=== PATIENT | male | born 1965 | race Caucasian/White ===

== ENCOUNTER 2021-02-05 17:21 | Outpatient (REF) | payer OTHER, SELFPAY ==
[2021-02-08 07:15] LABS: COVID-19 RT-PCR UVMMC Result Negative (Negative)
== END 2021-02-05 17:22 | disposition home or self-care (01) ==
LOC: NCHCN 17:21
PROVIDERS: PCP Internal Medicine; Visit Provider Internal Medicine
DX: Z20.822 Contact with and (suspected) exposure to COVID-19 (principal)
CPT/HCPCS: U0003

== ENCOUNTER 2021-05-29 11:30 | Outpatient (REF) | payer OTHER, SELFPAY ==
[2021-05-29 14:39] LABS: Calculated LDL 122 mg/dL (<100); Cholesterol 207 mg/dL (<200); HDL Cholesterol 69 mg/dL (40-60); Triglyceride 81 mg/dL (<150)
== END 2021-05-29 11:31 | disposition home or self-care (01) ==
LOC: NCHCN 11:30
PROVIDERS: PCP Internal Medicine; Visit Provider Family Medicine
DX: Z00.00 Encounter for general adult medical examination without abnormal findings (principal); Z13.220 Encounter for screening for lipoid disorders
CPT/HCPCS: 80061

== ENCOUNTER 2021-07-30 03:24 | Emergency (ER) | payer OTHER, SELFPAY ==
--- NOTE | 2021-07-30 03:26 | ED.GENADUL_ITS ---
Discharge Plan Disposition Patient Disposition: HOME Condition: Good Discharge Details Clinical Impression: Injury of knee, right Primary Care Provider: Austin Shrestha ED Provider: Andrés Cantrell Home Meds and New Rx's Prescriptions: No Action No Known Home Meds RF: 0 Discharge Instructions Instructions: Swollen Knee Joint (ED) Additional Instructions: At this time there is no evidence of fracture on your x-ray however as we discussed together I suspect that you have injured the menisci/cartilage and potentially strained the tendons. Please ice your knee, keep it wrapped with an Steve wrap, and take Tylenol Motrin as needed for pain. Please follow-up closely with the family support specialist Dr. Mills. If you notice any worsening of your symptoms, or any new symptoms such as vomiting, diarrhea, fever, chills, shortness of breath, chest pain, numbness, weakness, or fainting , please return immediately to the emergency department for reevaluation. Please follow up with your primary care provider as soon as possible for reassessment and reevaluation. As always, it was a pleasure participating in your medical care today. Referrals: Eren Mills MD [ [facility] STAFF PHYSICIAN] - Medical Decision Making This is a pleasant 56-year-old male with no significant past medical history who presents today for evaluation of right knee pain. Patient has noted that for the last few weeks he has had worsening achiness in his right knee. Pain has been worse with movement, bending, and walking. He has also noticed that over the last week he has not been able to bend or kneel down as he used to. He otherwise denies any trauma. This evening at about 9 PM the patient was walking down his stairs when he felt a pop and had significant pain in his right knee. Since then he has noted swelling, and has been unable to move it without any significant pain. He did take ibuprofen twice this evening but this did not help his pain. He does have crutches. He denies any previous surgeries or injuries to the knee. He does have an appointment with Dr. Mills in a bit greater than 1 month from now. No other complaints at this time. No other modifying factors. Physical exam demonstrates mild swelling around the knee, however there is actually no tenderness on palpation of the patella, tibial plateau, or fibular head. The patient does have pain with varus stressing primarily when the knee is bent to 90 degrees. The pain is located on the lateral aspect of the knee. Alexsander's test is notably positive and tender. Suspect combination of meniscal injury and potentially lateral collateral injury however I feel the latter being less likely. The patient does have an appointment scheduled with Dr. Mills for his ongoing right knee pain, however this is over a month away. We will get an x-ray to rule out acute process treat with NSAIDs and ice, monitor closely and reassess. Additionally the patient has no tenderness in the calf or thigh, neurovascular exam proximally and distally is normal. No clinical evidence of compartment syndrome, neurovascular compromise, or arterial injury. 4:46 AM X-ray results negative for any evidence of acute fracture. Will discharge patient with recommendation for NSAIDs, rest, ice, elevation and Steve wrap. Will copy the note to Dr. Mills. Recommend close follow-up with PCP and Dr. Mills for further evaluation on outpatient basis. Suspect meniscal injury, as well as mild ligamentous damage. Knee is not unstable on exam. No indication for knee brace at this time. Recommend nonweightbearing until reassessment by PCP/Ortho or until pain improves. I have extensively reviewed the treatment plan and discharge instructions with the patient and their family. I have addressed all patient concerns at this time. The patient and family was made aware of what symptoms to monitor for that would warrant a return to the emergency department. Discussed the plan with the patient and family, they demonstrate verbal understanding and agreement with our assessment and plan at this time. The documentation in this chart was dictated using [employer] dictation software. Please excuse any dictation errors. FINDINGS: Bones/joints: Pre patellar and infrapatellar soft tissue swelling. Small joint effusion. No evidence of acute fracture. Mild osteoarthritis. Soft tissues: See Bones/joints finding. IMPRESSION: Soft tissue swelling and small joint effusion Thank you for allowing us to participate in the care of your patient. Dictated and Authenticated by: Vibha Murillo MD 07/30/2021 4:40 AM Eastern Time ([place] & [place]) HPI General Date/Time Provider Initiated Documentation: 07/30/21 03:25 . HPI Narrative: This is a pleasant 56-year-old male with no significant past medical history who presents today for evaluation of right knee pain. Patient has noted that for the last few weeks he has had worsening achiness in his right knee. Pain has been worse with movement, bending, and walking. He has also noticed that over the last week he has not been able to bend or kneel down as he used to. He otherwise denies any trauma. This evening at about 9 PM the patient was walking down his stairs when he felt a pop and had significant pain in his right knee. Since then he has noted swelling, and has been unable to move it without any significant pain. He did take ibuprofen twice this evening but this did not help his pain. He does have crutches. He denies any previous surgeries or injuries to the knee. He does have an appointment with Dr. Mills in a bit greater than 1 month from now. No other complaints at this time. No other modifying factors. Related Data Home Medications Medication Instructions Recorded Confirmed Unknown [No Known Home Meds] 04/11/18 07/30/21 Allergies Allergy/AdvReac Type Severity Reaction Status Date / Time No Known Allergies Allergy Unverified 07/30/21 03:32 Review of Systems All systems reviewed & are unremarkable except as noted in HPI and below [facility] Surgical History Excision, Lesion (09/02/17) skin of temporal area, right shoulder and right flank - all returned as seborrheic keratosis. Social History Smoking/Tobacco Use Status: Never Smoking risk assessment performed?: Yes Alcohol Intake: current Alcohol Intake frequency: a few times a week Alcohol type: beer Drug use: Never Substance use type: does not use Do you feel safe at home: Yes Do you feel safe in your relationship?: Yes Exam Narrative Exam Narrative: 1.Const: Well-nourished, Well-developed, appearing stated age 2.Eyes: PERRL, no conjunctival injection, and symmetrical lids. 3.ENT: Atraumatic external nose and ears. Moist MM. Neck: Symmetric, trachea midline, No thyromegaly. 4.CVS: +S1/S2, No murmurs or gallops. Peripheral pulses 2+ and equal in all extremities. Brisk capillary refill in all extremities. 5.RESP: Unlabored respiratory effort. Clear to auscultation bilaterally. No wheezes rales or rhonchi 6.GI: Soft, Nontender/Nondistended, No hepatosplenomegaly. No guarding or rebound. 7.MSK: Right knee: The knee is stable to varus, valgus, and anterior drawer stress, however there is a slight increase in pain as well as minimal laxity on varus stressing, and this is most pronounced when the knee is bent at 90 degrees and the least pronounced when the knee is straight. No deformity, however there is mild swelling throughout. No redness or atypical warmth to suggest infection.Alexsander test is notably positive for pain. Patient is able to walk with a mild to moderate limp secondary to pain. No ttp to the patella, tibial plateau, or fibular head. 8.Skin: Warm, Dry. No rashes or lesions. 9.Neuro: [place] operator II-XII grossly intact. Sensation grossly intact, no focal neurologic deficits. 10.Psych: (AAO) x3. Appropriate mood and affect
[2021-07-30 03:28] VITALS: BP 114/65; PULSE 77; RESP 16; TEMP 37.1; O2SAT 97
--- NOTE | 2021-07-30 03:30 | DI.RAD_ITS ---
Exam(s) XR KNEE RT 3V AP,LAT,MAGALI EXAM: XR KNEE RT 3V AP,LAT,MAGALI CLINICAL HISTORY: pop in right knee3, swelling ,r/o fx. TECHNIQUE: 2D digital imaging was performed of the right knee. Three views obtained. AP, lateral an d AP tunnel views were obtained. COMPARISON: No previous for comparison. FINDINGS: BONES: No acute fracture is present. No bony destructive lesion is seen. JOINTS: The knee is normally aligned. No joint effusion is seen. SOFT TISSUE: Mild prepatellar soft tissue swelling. IMPRESSION: No acute fracture or dislocation. DATA REPOSITORY: RADIATION DOSE DELIVERED:
[2021-07-30] MEDS: Acetaminophen 500 MG TAB 1000 MG PO (03:48)
--- NOTE | 2021-07-30 04:41 | DI.VRAD_ITS ---
PROCEDURE INFORMATION: Exam: XR Right Knee Exam date and time: 07/30/2021 3:39 AM Age: 56 years old Clinical indication: Other: Pop in right knee3, swelling , R/O FX TECHNIQUE: Imaging protocol: XR Right knee. Views: 3 views. COMPARISON: No relevant prior studies available. FINDINGS: Bones/joints: Pre patellar and infrapatellar soft tissue swelling. Small joint effusion. No evidence of acute fracture. Mild osteoarthritis. Soft tissues: See Bones/joints finding. IMPRESSION: Soft tissue swelling and small joint effusion Dictated and Authenticated by: Vibha Murillo MD. Ordering:ELMER Bowen MD
== END 2021-07-30 04:45 | disposition home or self-care (01) ==
LOC: ER 04:22
PROVIDERS: Emergency Provider Student in an Organized Health Care Education/Training Program; PCP Internal Medicine
DX: S89.81XA Other specified injuries of right lower leg, initial encounter (principal); X58.XXXA Exposure to other specified factors, initial encounter
CPT/HCPCS: 73562; 99283

== ENCOUNTER 2021-08-14 01:25 | Outpatient (CLI) | payer OTHER, SELFPAY ==
--- NOTE | 2021-08-14 07:15 | DI.MRI_ITS ---
Exam(s) MR LOWER JOINT RT WO EXAM: MR LOWER JOINT RT WO CLINICAL HISTORY: PAIN, INJURY,tear of meniscus,s89.91xa,s83.206a. TECHNIQUE: Multiplanar multisequence MRI was performed. COMPARISON: CR,XR XR KNEE RT 3V AP,LAT,MAGALI from 07/30/2021 FINDINGS: BONES: There is a question of a cortical disruption in the articular surface of the lateral tibial pl ateau with mild edema present subchondral edema present. (Series [id number], image 21). Findings are clara picious for minor tibial plateau fracture. JOINTS: Articular cartilage is unremarkable. There is a small joint effusion. TENDONS: Extensor mechanism: Unremarkable. Medial retinaculum: Unremarkable. Lateral retinaculum: Unremarkable. Popliteus: Unremarkable. MUSCLES: Unremarkable. MENISCI: The medial meniscus is unremarkable. There is a tear of the body and posterior horn of the lateral meniscus. SOFT TISSUES: There is a popliteal cyst measuring 2.9 AP by 2.8 transverse by 5.9 craniocaudad cm. LIGAMENTS: Anterior Cruciate: Unremarkable. Posterior Cruciate: Unremarkable. Medial Collateral:Unremarkable. Lateral Collateral: Unremarkable. OTHER: IMPRESSION: 1. Tear of the body and posterior horn of the lateral meniscus. 2. 2.9 x 2.8 x 5.9 cm popliteal cyst. 3. Findings suspicious for a small lateral tibial plateau fracture. DATA REPOSITORY:
== END 2021-08-14 01:45 ==
PROVIDERS: PCP Internal Medicine; Visit Provider Student in an Organized Health Care Education/Training Program
DX: M25.561 Pain in right knee (principal); S83.281A Other tear of lateral meniscus, current injury, right knee, initial encounter; M71.21 Synovial cyst of popliteal space [Baker], right knee; M25.461 Effusion, right knee
CPT/HCPCS: 73721

== ENCOUNTER 2021-09-14 02:54 | Outpatient (CLI) | payer OTHER, SELFPAY ==
[2021-09-14 10:54] LABS: Source Nasal/Nares
[2021-09-14 17:39] LABS: COVID-19 PCR Negative (Negative)
== END 2021-09-14 02:55 | disposition home or self-care (01) ==
LOC: LBO 02:55
PROVIDERS: PCP Internal Medicine; Visit Provider Student in an Organized Health Care Education/Training Program
DX: Z20.822 Contact with and (suspected) exposure to COVID-19 (principal)
CPT/HCPCS: 87635

== ENCOUNTER 2021-09-16 07:29 | Day surgery (SDC) | payer OTHER, SELFPAY ==
[2021-09-16] VITALS (8 sets, daily range): BP systolic 90–107; BP diastolic 57–73; PULSE 56–68; RESP 15–20; TEMP 36.2–36.9; O2SAT 94–100; BMI 29.9
--- NOTE | 2021-09-16 07:32 | W.PM.DSUDISC ---
Discharge Plan Disposition Patient Disposition: HOME Condition: Good Discharge Details Reason For Visit: Right knee lateral meniscus tear Attending Provider: Eren Mills Primary Care Provider: Austin Shrestha [place] Meds and New Rx's Prescriptions: New hydrocodone-acetaminophen 5-325 mg tablet 1 tab PO Q6H PRN (Reason: severe pain) Qty: 4 RF: 0 acetaminophen 500 mg tablet 500 mg PO Q6H PRN (Reason: pain) Qty: 60 RF: 2 ibuprofen 600 mg tablet 600 mg PO TID PRN (Reason: pain) Qty: 60 RF: 0 Discontinued ibuprofen 200 mg tablet 200 mg PO Q6H PRNRF: 0 acetaminophen [Tylenol] 325 mg tablet 325 mg PO ONCE PRNRF: 0 Discharge Instructions Stand Alone Forms: [facility] Knee Arthroscopy Referrals: Eren Mills MD [ [facility] STAFF PHYSICIAN] - Equipment/Supplies: Partial Weight Bearing Crutches Activity:: Elevate Remove Dressings/Wound Care:: 72 hours Shower/Bathe:: 72 hours Diet:: As Tolerated Discharge Orders Discharge Orders: Discharge Order (Routine); Ordered 09/16/21 Ordered By: Katelyn Diaz DS: Diagnosis Discharge Diagnosis (1) Acute lateral meniscus tear of right knee: Status: Acute
--- NOTE | 2021-09-16 08:26 | W.ANESPRE ---
General Info Date of Service Date Performed: 09/16/21 Height: 5 ft 8 in Weight: 89.3 kg Body Mass Index (BMI): 29.9 Surgical Procedure: Operation Date: 09/16/21 09:55 Proposed Procedures Side Surgeon p Knee Arthroscopy possible menisectomy vs. meniscal repair Right Eren Mills MD Meds Allergies and Home Medications Allergies Allergy/AdvReac Type Severity Reaction Status Date / Time No Known Allergies Allergy Verified 09/16/21 08:05 Home Medication Medication Instructions Recorded acetaminophen 325 mg tablet 325 mg PO ONCE PRN 07/31/21 ibuprofen 200 mg tablet 200 mg PO Q6H PRN 07/31/21 Current Visit Medications: Current Medications Generic Name Dose Route Start Last Admin Trade Name Freq PRN Reason Stop Dose Admin Acetaminophen 650 mg 09/16/21 07:31 Acetaminophen 325 Mg Tab PO Q4H PRN PRN Hydrocodone Bitart/Acetaminophen 0 tab 09/16/21 07:31 Hydrocodone 5/Acetaminophen 325 Tab PO Q3H PRN PRN Pain Ringer's Solution 1,000 mls @ 80 mls/hr 09/16/21 06:00 IV 10/15/21 23:59 INFUSION BEATRIZ Cefazolin Sodium/Dextrose 2 gm in 50 mls @ 100 mls/hr 09/16/21 06:00 Ancef Duplex IVPB 10/15/21 23:59 PREOP BEATRIZ Ondansetron HCl 4 mg/ Sodium 52 mls @ 200 mls/hr 09/16/21 07:31 Chloride IVPB Q6H PRN PRN IV Miscellaneous Supplies 1 each 09/16/21 06:00 Iv Access IV 10/15/21 23:59 DIRECTED BEATRIZ Sodium Chloride 0 ml 09/16/21 06:00 Normal Saline Flush 10 Ml Syr IV 10/15/21 23:59 PRN PRN Sodium Chloride 0 ml 09/16/21 06:00 Normal Saline 10 Ml Vial IJ 10/15/21 23:59 DIRECTED PRN Sterile Water 0 ml 09/16/21 06:00 Water,Injection,Sterile 10 Ml Vial IJ 10/15/21 23:59 DIRECTED PRN PFSH Active Problems Active Problems: Problem Status Onset Code Injury of knee, right S89.91XA Internal derangement of right knee M23.91 Acute lateral meniscus tear of right knee S83.281A Medical History Active Problem List Injury of knee, right (Acute) Internal derangement of right knee (Acute) Acute lateral meniscus tear of right knee (Acute) Surgical History Surgical History (Updated 09/16/21 @ 08:05 by Pricilla Wang) Excision, Lesion (09/02/17) skin of temporal area, right shoulder and right flank - all returned as seborrheic keratosis. History of testicular surgery Hx of colonoscopy Tobacco Smoking/Tobacco Use Status: Never Alcohol Alcohol Intake: current Alcohol intake frequency: a few times a week Alcohol type: beer Substance Use Substance use: Never Substance use type: does not use Vital Signs and Lab Results Vital Signs Most Recent Vital Signs in EMR: Most Recent Vital Signs Temp Pulse Resp BP Pulse Ox 36.9 C 64 16 103/73 100 09/16/21 07:50 09/16/21 07:50 09/16/21 07:50 09/16/21 07:50 09/16/21 07:50 Lab Results Blood Type / Crossmatch: No Data to Display Complete Blood Count: No Data to Display Complete Metabolic Panel: No Data to Display Liver Function Panel: No Data to Display Coagulation Panel: No Data to Display Cardiac Panel: No Data to Display Arterial Blood Gas: No Data to Display Venous Blood Gas: No Data to Display Pancreas Panel: No Data to Display Thyroid Panel: No Data to Display Infectious Disease: Coronavirus (COVID-19)(PCR) Negative (Negative) 09/14/21 09:45 09/14/21 Coronavirus 2019 Source Nasal/Nares 09/14/21 09:45 09/14/21 Blood Cultures: No Data to Display Toxicology Panel: No Data to Display Imaging and Studies Imaging and Studies Stress Test Summary: mpressions: Normal study after maximal exercise. Summary: 1. Stress ECG conclusions: The stress ECG is negative. Corey treadmill score: 12. This score predicts a low risk of cardiac events. 2. Stress: The target heart rate was achieved. The heart rate response to stress is normal. There is a normal resting blood pressure with an appropriate response to stress. The patient experienced no chest pain during stress. Exercise capacity is excellent (13.5 METS). Indication: R07.9. History: REASON FOR TESTING: RECENT EPISODE OF CHEST PAIN THAT RESULTED IN ER VISIT. DESCRIBED THE PAIN A SQUEEZING PRESSURE OFF AND ON FOR 4-5 HOURS.KS RULED OUT AT THAT TIME-EKG AND TROPONINS WNL. Anesthesia Assessment and Plan Anesthesia History Personal History: No History of Anesthesia Complications Family History: No Family History of Anesthesia Complications Exercise Tolerance Exercise Tolerance: Metabolic Equivalents>4 Pertinent Negatives Pertinent Negatives: No Symptoms of GERD, No Major Cardiovascular Symptoms or Complaints, No Major Pulmonary Symptoms or Complaints and No History of CVA/TIA Cardiac & Pulmonary Exam Cardiac Exam: Normal S1/S2 Heart Sounds Pulmonary Exam: Clear Bilateral Breath Sounds Implantable Cardiac Device Does patient have a Pacemaker or an ICD?: No Airway Exam Known Difficult Airway: No Mallampati Class: 2 Mouth Opening: Normal (> 3cm) Thyromental Distance: Greater than 3 cm Neck Range of Motion: Full ROM Neck Circumference: Normal Teeth Condition: Normal Dentition ASA Classification ASA Score: ASA 2 Emergency Case?: No NPO Status NPO Status: NPO Clears >2 hours, Solids >8 hours Anesthesia Plan Resuscitation Status: Full Code Anesthesia Technique: General Anesthesia Airway Planned: LMA Monitors Used: Standard Monitors
[2021-09-16] MEDS: Lactated Ringers 1,000 ML 80 ML IV (08:40)
--- NOTE | 2021-09-16 09:11 | HPE_ITS ---
Date of service: 09/16/21 Time of Service: 09:11 Assessment and Plan Assessment and plan (1) Acute lateral meniscus tear of right knee: Status: Acute (2) Synovial cyst of right popliteal space: Status: Acute Assessment and plan: Hilario is a 56 yo with a lateral meniscus tear of the right knee from an injury. He also has a popliteal cyst. He has failed conse rvative, nonoperative options and desires to proceed with surgical intervention. I discussed the technical features of a knee arthroscopy with possible popliteal cyst aspiration. I reviewed the risks of the procedure to include bleeding, infection, pain, stiffness, recurrence, retear, damage to nerves and vessels. I also would aspirate the popliteal cyst if unable to deompress from the arthroscopy. After this review, he agrees to proceed. History of Present Illness History of Present Illness Chief Complaint: Right Knee Lateral Meniscus Tear, Popliteal Cyst Narrative: Hilario is a 36-year-old who suffered an injury to his right knee. H has been diagnosed with a lateral meniscal tear along with a popliteal cyst. He has failed nonoperative treatments. He desires to proceed with knee arthroscopy. He has no sick contacts. He denies COVID-19 symptoms and tested negative. Review of Systems All systems reviewed & are unremarkable except as noted in HPI and below PFSH Active Problem List Injury of knee, right (Acute) Internal derangement of right knee (Acute) Acute lateral meniscus tear of right knee (Acute) Surgical History Excision, Lesion (09/02/17) skin of temporal area, right shoulder and right flank - all returned as seborrheic keratosis. History of testicular surgery Hx of colonoscopy Social History Smoking/Tobacco Use Status: Never Smoking risk assessment performed?: Yes Alcohol Intake: current Alcohol Intake frequency: a few times a week Alcohol type: beer Drug use: Never Substance use type: does not use Do you feel safe at home: Yes Do you feel safe in your relationship?: Yes Meds Allergies and Home Medications Allergies Allergy/AdvReac Type Severity Reaction Status Date / Time No Known Allergies Allergy Verified 09/16/21 08:05 Home Medications Medication Instructions Recorded Confirmed Type acetaminophen 325 mg tablet 325 mg PO ONCE PRN 07/31/21 09/16/21 History ibuprofen 200 mg tablet 200 mg PO Q6H PRN 07/31/21 09/16/21 History Exam Resp Auscultation: clear to auscultation bilaterally Cardio Rate: regular rate Rhythm: regular rhythm Results Last Vital Signs Temp 36.9 C 09/16/21 07:50 Pulse 64 09/16/21 07:50 Resp 16 09/16/21 07:50 BP 103/73 09/16/21 07:50 Pulse Ox 100 09/16/21 07:50
[2021-09-16] MEDS: ceFAZolin 2 GM/50 ML BAG IVPB (09:19)
[2021-09-16] MEDS: Bupivacaine 0.5% Pres-Free 30 ML VIAL (09:55)
--- NOTE | 2021-09-16 10:56 | W.ANESPOSTOP ---
Postoperative Evaluation Date, Time and Location Date Performed: 09/16/21 Time Performed: 10:56 Patient Location: Day Surgery Unit Vital Signs Most Recent Imported Vital Signs: Most Recent Vital Signs Temp Pulse Resp BP Pulse Ox 36.6 C 59 L 19 105/65 97 09/16/21 10:32 09/16/21 10:32 09/16/21 10:32 09/16/21 10:32 09/16/21 10:32 Pain Score Most Recent Pain Score: Most Recent Pain Score Pain Level 0 09/16/21 07:50 Assessment Mental Status: Awake (Alert & Oriented to Patient Baseline) Airway and Respiratory Function: Patent airway with normal (patient baseline) respiratory exam Cardiovascular Function: Hemodynamically Stable Hydration Status: Adequately Hydrated Nausea & Vomiting: No Nausea or Vomiting Pain: Pain is tolerable per patient (Rates 5-6 but tolerable, wants to treat only with tylenol at this time. ) Peripheral Nerve Block: Patient did not receive a nerve block
[2021-09-16] MEDS: Acetaminophen 325 MG TAB 650 MG PO (11:03)
--- NOTE | 2021-09-16 14:42 | W.PM.OP ---
Date of service: 09/16/21 Time of Service: 11:43 Operative Note Operative Note DATE OF PROCEDURE: 09/16/21 PRE-OP DIAGNOSIS: Right Lateral Meniscus Tear, Popliteal Cyst POST-OP DIAGNOSIS: same Right Knee Lateral Tibial Chondromalacia PROCEDURE: Right Knee Arthroscopic Partial Lateral Menisectomy, Aspiration of Right Popliteal Cyst SURGEON: Eren Mills ANESTHESIA TYPE: General LMA/ETT Refer to Anesthesia Record ESTIMATED BLOOD LOSS: 0 PATHOLOGY: none sent TOURNIQUET TIME: 0 COMPLICATIONS: None Patient was transported to: PACU Patient's condition: stable Indications: I have seen Hilario in clinic for symptoms of a meniscus tear. This was confirmed based on MRI and exam findings. Nonoperative measures were exhausted but disability and pain persisted. I discussed knee arthroscopy with meniscal intervention with the patient. I reviewed the risks of the procedure to include, but not limited to, bleeding, infection, pain, stiffness, damage to nerves or vessels, recurrence, blood clot. Despite these risks, the patient elected to proceed. 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 The consent was reviewed with the patient and signed. The history and physical was updated. All questions were answered. He was taken back to the operating room. The patient was placed into the supine position on the operating room table. All bony prominences were well padded. Prophylactic antibiotics in the form of Cefazolin were administered. The right leg was then prepped with Chloraprep and draped in a standard fashion with stockinette and extremity drape. A timeout to confirm correct identity, side and site, procedure, allergies, anesthesia, and medical concerns was performed. The leg was placed into a pneumatic leg garcia, [id number]. A standard lateral portal was made at the lateral border of the patella tendon in line with the inferior pole of the patella, soft spot. The skin and deep tissue was incised sharply and the blunt trochar was inserted atraumatically. A diagnostic arthroscopy was performed and the findings are listed above. The suprapatellar pouch had moderate inflammatory changes. The patellofemoral articulation showed no articular damage as well as some lateral tracking. The lateral gutter had no loose bodies and the medial gutter had no loose bodies. The knee was brought into some valgus stress in extension to open the medial compartment. A medial portal was made, localized by a spinal needle. The portal was created with an #11 blade through skin and capsule under direct visualization avoiding any meniscal injury. A probe was then inserted into the medial compartment. The medial compartment was fully inspected. The chondral surface of the tibia showed no significant chondromalacia and the surface of the femur showed no significant chondromalacia. The medial meniscus had no meniscal tear. The notch was then inspected which showed an intact ACL and an intact PCL. The leg was then brought into a figure of 4 position. The lateral compartment was fully inspected with the arthroscope and a probe. The chondral surface of the lateral femur showed Grade I chondromalacia. The chondral surface of the lateral tibia showed Grade IV focal chondromalacia within the central tibia and some surrounding Grade II chondromalacia. The lateral meniscus had a large flap tear displaced into the notch which appeared to be from a horizontal tear hinged at the level of the root. After evaluation, the meniscus was debrided down to a stable base using a series of biters and arthroscopic bacilio. It was probed afterwards to confirm that the tear had been removed and the meniscus was stable. Cartilage surfaces were debrided of any flaps, leaving any intact fibers. From this position I also tried to apply pressure to the popliteal cyst but was unable to express any significant amount of fluid. Therefore, I eleveated the leg and aspirated the popliteal cyst of 20cc of thick synovial fluid. The arthroscope was brought back into the suprapatellar pouch and the leg was in full extension. The knee was thoroughly irrigated with the arthroscopic fluid on high flow and pressure. Inflow was stopped and excess fluid was removed. The wounds were closed with 4-0 Nylon. They were dressed with Xeroform, 4x4 gauze, ABD pad, Kerlix and an PIETER wrap. A cryo-cuff was applied. The patient tolerated the procedure well and was returned to the [facility] area in a stable condition suffering no known complication.
== END 2021-09-16 12:12 | disposition home or self-care (01) ==
PROVIDERS: PCP Internal Medicine; Visit Provider Student in an Organized Health Care Education/Training Program
PROC: (CPT 29870; principal; 2021-09-16 09:45)
DX: S83.281A Other tear of lateral meniscus, current injury, right knee, initial encounter (principal); M71.21 Synovial cyst of popliteal space [Baker], right knee; M94.261 Chondromalacia, right knee; X58.XXXA Exposure to other specified factors, initial encounter
CPT/HCPCS: 29881; 20610; J0690; J1885; J2405; J2704

== ENCOUNTER 2025-05-14 17:12 | Outpatient (REF) | payer OTHER, SELFPAY ==
[2025-05-14 17:04] LABS: Calculated LDL 120 mg/dL (<100); Cholesterol 206 mg/dL (<200); Glucose 82 mg/dL (74-106); HDL Cholesterol 77 mg/dL (>or=40); Triglyceride 47 mg/dL (<150)
== END 2025-05-14 17:13 | disposition home or self-care (01) ==
LOC: NCHCN 17:12
PROVIDERS: PCP Internal Medicine; Visit Provider Family Medicine
DX: Z00.00 Encounter for general adult medical examination without abnormal findings (principal)
CPT/HCPCS: 80061; 82947